=== PATIENT | male | born 1940 | race Caucasian/White ===

== ENCOUNTER 2016-03-15 20:26 | Inpatient (IN) | payer OTHER, MEDICARE ==
[~2016-03-15] VITALS: Ht 182.9 cm; Wt 100.0 kg
[~2016-03-15 20:26] MED LIST: ALDACTONE25 MG PO; AVODART0.5 MG PO; BAYER CHEWABLE81 MG PO; CHOLESTROL MED; K-DUR20 MEQ PO; LASIX40 MG; LASIX40 MG PO; PAMELOR10 MG PO; PLAVIX75 MG; PLAVIX75 MG PO; PRAVACHOL20 MG; PRAVACHOL40 MG PO; PROSCAR5 MG PO; TARKA 4-240 MG1 EACH PO; VITAMIN D31000 UNIT PO
[2016-03-15 21:01] LABS: BASOPHILS 0.1 % (0.0-2.0); EOSINOPHILS 1.5 % (0-7); HEMATOCRIT 38.6 % (42.0-54.0); IMMATURE GRANULOCYTES 0.2 % (0-5); LYMPHOCYTES 12.8 % (15-50); MCH 31.2 pg (26.0-34.0); MCHC 33.7 g/dL (31.0-37.0); MCV 92.6 fL (80.0-100.0); MEAN PLATELET VOLUME 9.4 fL (7.4-10.4); MONOCYTES 8.7 % (2-11); NEUTROPHILS 76.7 % (40-80); PLATELET COUNT 273 10x3/uL (130-400); RBC 4.17 10x6/uL (4.20-6.10); RDW 13.2 % (11.5-14.5)
[2016-03-15 21:58] LABS: ALBUMIN 3.5 g/dL (3.4-5.0); ALKALINE PHOSPHATASE 70 U/L (46-116); ALT (SGPT) 22 U/L (10-68); BILIRUBIN - TOTAL 0.51 mg/dL (0.2-1.3); CALC OSMOLALITY 280 mosm/kg (275-300); CALCIUM 8.7 mg/dL (8.5-10.1); CARBON DIOXIDE 20.8 mmol/L (21.0-32.0); CHLORIDE - SERUM 105 mmol/L (98-107); CREATININE - SERUM 1.2 mg/dL (0.6-1.3); GLUCOSE 117 mg/dL (74-106); POTASSIUM - SERUM 3.1 mmol/L (3.5-5.1); PROTEIN - SERUM 6.2 g/dL (6.4-8.2); SODIUM 139 mmol/L (136-145); UREA NITROGEN 19 mg/dL (7-18); eGFR NON AFRICAN AMERICAN 63 mL/min (90-120)
[2016-03-15 22:10] LABS: CREATINE KINASE 235 UL (21-232); PRO BNP 39 pg/mL (0-125)
[2016-03-15 22:13] LABS: TROPONIN-I < 0.017 ng/mL (0.000-0.060)
--- NOTE | 2016-03-16 00:38 | NUR ---
RECIEVED PT TO ROOM 2234 VIA WHEELCHAIR ACCOMPANIED BY FAMILY, ASSESSMENT COMPLETED NO ACUTE DISTRESS NOTED, ORIENTED TO ROOM AND CALL LIGHT, SAFETY MEASURES IN PLACE, CL IN REACH, WILL MONITOR
--- NOTE | 2016-03-16 03:45 | NUR ---
RESTING WITH EYES CLOSED, HOB ELEVATED, NC IN PLACE, SR'S UP, CL IN REACH
[2016-03-16] MEDS ORDERED: ASPIRIN EC81 M1 PO (05:53)
[2016-03-16] MEDS ORDERED: PYRIDOXINE HCL100 MG PO (05:53)
[2016-03-16] MEDS ORDERED: SAW PALMETTO450 MG PO (05:54)
[2016-03-16] MEDS ORDERED: MAGNESIUM OXID250 MG PO (05:54)
[2016-03-16 08:41] VITALS: BP 131/63
--- NOTE | 2016-03-16 09:00 | NUR ---
ASSESSMENT PER FLOW SHEET.PT WITHOUT DISTRESS.CALL LIGHT IN REACH
[2016-03-16 11:57] LABS: BASOPHILS 0 % (0.0-2.0); EOSINOPHILS 0 % (0-7); HEMATOCRIT 38.8 % (42.0-54.0); HEMOGLOBIN 13.1 g/dL (13.5-17.5); IMMATURE GRANULOCYTES 0.2 % (0-5); LYMPHOCYTES 4.6 % (15-50); MCH 31.2 pg (26.0-34.0); MCHC 33.8 g/dL (31.0-37.0); MCV 92.4 fL (80.0-100.0); MEAN PLATELET VOLUME 9.1 fL (7.4-10.4); MONOCYTES 1.5 % (2-11); NEUTROPHILS 93.7 % (40-80); PLATELET COUNT 258 10x3/uL (130-400); RDW 13.2 % (11.5-14.5); WBC 14.3 10x3/uL (4.8-10.8)
[2016-03-16 12:13] LABS: ALBUMIN 3.3 g/dL (3.4-5.0); ANION GAP 18.7 mmol/L (8-16); BILIRUBIN - TOTAL 0.56 mg/dL (0.2-1.3); CALCIUM 9.3 mg/dL (8.5-10.1); CARBON DIOXIDE 20.5 mmol/L (21.0-32.0); POTASSIUM - SERUM 3.2 mmol/L (3.5-5.1); PROTEIN - SERUM 6.8 g/dL (6.4-8.2)
[2016-03-16 12:18] LABS: CREATININE - SERUM 1.6 mg/dL (0.6-1.3)
[2016-03-16 12:31] VITALS: BP 148/76
[2016-03-16 13:39] LABS: MAGNESIUM - SERUM 1.9 mg/dL (1.8-2.4); PHOSPHOROUS 3.2 mg/dL (2.5-4.9)
--- NOTE | 2016-03-16 13:54 | NUR ---
Patient Name: SELENE MALAVE Admission Status: ER Accout number: [id number] Admission Date: 03-15-2016 : 1940 Admission Diagnosis: Attending: ARVIN Current LOS: 1 Anticipated DC Date: 03-19-2016 Planned Disposition: Home Primary Insurance: [facility] PPO Discharge Planning Comments: CM MET WITH PATIENT AND DAUGHTER (ANGELA) REGARDING D/C NEEDS AND PLANS. PATIENT STATED HE LIVES ALONE AND ONE OF HIS DAUGHTERS WILL DRIVE HIM HOME AT DISCHARGE. PATIENT STATES HE HAS NO STEPS TO ENTER HOME BUT INSIDE HE HAS SEVERAL 2 STEP STEP-UPS (HOUSE HIS DIFFERENT LEVELS). PATIENT IS INDEPENDENT WITH HIS CARE AND HAS NO DME AT HOME. PATIENT STATED DR. YUSUF IS HIS PCP AND PHARMACY IS [facility] ON [address] PATIENT DENIES THE NEED FOR HOME HEALTH. CM WILL CONTINUE TO FOLLOW PATIENT WITH D/C NEEDS AND PLANS. PCP DR. PARAMJIT KAYE ON [address] [phone] ANGELA (DAUGHTER) [phone] JOSELINE (DAUGHTER) [phone] Pigment Pusher: Fabby Perez Is the patient Alert and Oriented? Yes 0 * How many steps to enter\exit or inside your home? 4 0 * PCP DR. YUSUF 0 * [facility] [address] 0 * Preadmission Environment Home Alone 0 * ADLs Independent 0 * Equipment None 0 * List name and contact numbers for known caregivers / representatives who currently or will assist patient after discharge: ANGELA (DAUGHTER) [phone] JOSELINE (DAUGHTER) [phone] 0 * Community resources currently utilized None 0 * Additional services required to return to the preadmission environment? Yes 0 * Can the patient safely return to the preadmission environment? Yes 0 * Has this patient been hospitalized within the prior 30 days at any hospital? No 0 Grand Total: 0
[2016-03-16 16:27] VITALS: BP 170/62
--- NOTE | 2016-03-16 18:24 | NUR ---
REMAINS WITHOUT CHANGE.DENIES NEEDS.HEADACHE BETTER.WITHOUT CHANGE.CONT PLAN OF CARE.
[2016-03-16 18:37] VITALS: BP 131/63; Ht 182.9 cm; Wt 100.0 kg
--- NOTE | 2016-03-16 19:30 | NUR ---
ASSESSMENT COMPLETED, NO ACUTE DISTRESS NOTED, NC IN PLACE, DENIES NEEDS, SR'S UP, CL IN REACH, WILL MONITOR
[2016-03-16 21:14] VITALS: BP 147/69
--- NOTE | 2016-03-16 21:41 | NUR ---
meds given per mar, shy well, cl in reach
--- NOTE | 2016-03-16 23:55 | NUR ---
RESTING WITH EYES CLOSED, RESP WITH EASE, NC IN PLACE, CL IN REACH
--- NOTE | 2016-03-17 03:20 | NUR ---
CONTINUES TO REST WITH EYES CLOSED, NO DISTRESS NOTED, CL IN REACH
[2016-03-17 05:43] LABS: HEMATOCRIT 37.1 % (42.0-54.0); HEMOGLOBIN 12.2 g/dL (13.5-17.5); MCH 30.6 pg (26.0-34.0); MCHC 32.9 g/dL (31.0-37.0); MEAN PLATELET VOLUME 9.5 fL (7.4-10.4); PLATELET COUNT 288 10x3/uL (130-400); RBC 3.99 10x6/uL (4.20-6.10); RDW 13.2 % (11.5-14.5); WBC 21.4 10x3/uL (4.8-10.8)
[2016-03-17 05:52] LABS: ALBUMIN 2.9 g/dL (3.4-5.0); ANION GAP 15.5 mmol/L (8-16); BILIRUBIN - TOTAL 0.3 mg/dL (0.2-1.3); CALCIUM 8.9 mg/dL (8.5-10.1); CARBON DIOXIDE 21.8 mmol/L (21.0-32.0); CREATININE - SERUM 1.2 mg/dL (0.6-1.3); POTASSIUM - SERUM 3.3 mmol/L (3.5-5.1); PROTEIN - SERUM 5.4 g/dL (6.4-8.2)
--- NOTE | 2016-03-17 07:15 | NUR ---
SITTING UP IN BED AWAKE AND ALERT. DENIES PAIN OR NEEDS. CALL LIGHT IN REACH, SRX2 WITH BED IN LOWEST POSITION AND WHEELS LOCKED. WILL CONTINUE WITH PLAN OF CARE.
[2016-03-17 08:07] LABS: LYMPHOCYTES 2 % (15-50); NEUTROPHILS 97 % (40-80); PLATELET ESTIMATE NORMAL
[2016-03-17 08:29] VITALS: BP 130/62
--- NOTE | 2016-03-17 09:15 | NUR ---
SCHEDULED MEDICATIONS ADMINISTERED AT THIS TIME. ASSESSMENT PERFORMED PER FLOWSHEET. OXYGEN ON 2L VIA NC. PT DENIES PAIN AT THIS TIME. SCD MACHINE APPLIED TO BED AND SCD'S ON AND IN WORKING ORDER. DENIES FURTHER NEEDS. CALL LIGHT IN REACH, WILL CONTINUE WITH PLAN OF CARE.
[2016-03-17 12:13] VITALS: BP 110/57
--- NOTE | 2016-03-17 12:31 | NUR ---
UP IN SHOWER INDEPENDENTLY AT THIS TIME. DRESSING TO LOWER BACK REMOVED. WILL CONTINUE TO MONITOR PT.
--- NOTE | 2016-03-17 14:59 | NUR ---
SCHEDULED SOLU MEDROL ADMINISTERED PER ORDER AT THIS TIME. IV TO LEFT WRIST RE-DRESSED AND LABELED AT THIS TIME. DENIES NEEDS OR PAIN CURRENTLY. CALL LIGHT IN REACH, WILL CONTINUE WITH PLAN OF CARE.
[2016-03-17 16:24] VITALS: BP 129/62
--- NOTE | 2016-03-17 16:45 | NUR ---
DENIES NEEDS AT THIS TIME. CALL LIGHT IN REACH, WILL CONTINUE WITH PLAN OF CARE.
--- NOTE | 2016-03-17 19:00 | NUR ---
BEDSIDE REPORT RECEIVD AND CARE OF PT ASSUMED. PT LYING IN SEMI SIDHU'S POSITION VISITING WITH FAMILY MEMBER. IV IN LEFT WRIST SL. TELEMETRY IN PLACE AND READING SR AT THIS ASSESSMENT. WILL MONITOR GEN FOR NEEDS.
[2016-03-17 20:00] VITALS: BP 126/64
--- NOTE | 2016-03-17 20:46 | NUR ---
HS MEDS GIVEN. WILL CONTINUE TO MONITOR FOR NEEDS.
[2016-03-18 01:00] VITALS: BP 130/60
[2016-03-18 05:00] VITALS: BP 139/77
--- NOTE | 2016-03-18 05:00 | NUR ---
ALL NEEDS MET DURING SHIFT. CONTINUE PLAN OF CARE.
[2016-03-18 05:35] LABS: BASOPHILS 0 % (0.0-2.0); EOSINOPHILS 0 % (0-7); HEMATOCRIT 41.4 % (42.0-54.0); HEMOGLOBIN 13.1 g/dL (13.5-17.5); IMMATURE GRANULOCYTES 0.4 % (0-5); LYMPHOCYTES 3.2 % (15-50); MCH 30.3 pg (26.0-34.0); MCHC 31.6 g/dL (31.0-37.0); MCV 95.6 fL (80.0-100.0); MEAN PLATELET VOLUME 9.6 fL (7.4-10.4); MONOCYTES 2.2 % (2-11); NEUTROPHILS 94.2 % (40-80); PLATELET COUNT 343 10x3/uL (130-400); RBC 4.33 10x6/uL (4.20-6.10); RDW 13.5 % (11.5-14.5); WBC 24.3 10x3/uL (4.8-10.8)
[2016-03-18 06:11] LABS: ALBUMIN 3.1 g/dL (3.4-5.0); ANION GAP 16.5 mmol/L (8-16); BILIRUBIN - TOTAL 0.37 mg/dL (0.2-1.3); CALCIUM 8.9 mg/dL (8.5-10.1); CARBON DIOXIDE 23.8 mmol/L (21.0-32.0); POTASSIUM - SERUM 3.3 mmol/L (3.5-5.1); PROTEIN - SERUM 6.6 g/dL (6.4-8.2)
[2016-03-18 06:12] LABS: CREATININE - SERUM 1.6 mg/dL (0.6-1.3); PHOSPHOROUS 4.1 mg/dL (2.5-4.9)
--- NOTE | 2016-03-18 08:00 | NUR ---
PT ASSESSMENT COMPLETE AWAKE AND ALERT ORIENTED X 3 LUNGS WITH COARSE SOUNDS THROUGHOUT SHORT OF BREATH WITH EXERTION OF ANY KIND. NOTED VENTRAL HERNIA WITH COUGH COMPLAINS OF PAIN AND INABLITY TO PROPERLY SPLINT NEW ORDER FOR ABDOMINAL BINDER GIVEN FOR ASSISTANCE WITH SPLINT. DRESSING CHANGED TO LAMANECTOMY SITE. WOUND EDGES WELL APPROXIMATEED.
[2016-03-18 08:11] VITALS: BP 112/62
--- NOTE | 2016-03-18 10:52 | NUR ---
NO ACUTE DISTRESS NOTED VOICES ALL NEEDS TO STAFF CALL LIGHT IN REACH SIDE RAILS UP X 2
[2016-03-18 11:40] VITALS: BP 117/64
--- NOTE | 2016-03-18 13:57 | NUR ---
NUTRITION MONITORING & EVAL CHART REVIEWED. PT TOLERATING REG DIET. 25 TO 100% INTAKE RECENT MEALS. CONTINUES TO BE ASSESSED AT LOW NUTRITIONAL RISK. RD FOLLOWING
[2016-03-18 16:13] VITALS: BP 125/63
--- NOTE | 2016-03-18 16:45 | NUR ---
PATIENT IN BED WITH NO COMPLAINTS AT THIS TIME. CHROME TANNER AT BEDSIDE. CALL LIGHT WITHIN REACH.
--- NOTE | 2016-03-18 17:38 | NUR ---
PT AWAKE AND ALERT ORIENTED X 3 LUNGS CLEAR BILATERAL DENEIS PAIN OR DISCOMFORT. CALL LIGHT IN REACH SIDE RAILS UP X 2
--- NOTE | 2016-03-18 20:00 | NUR ---
ASSESSMENT PER FLOWSHEET. IV PATENT LEFT QWRIST WITH NS AT KVO. TELM SHOWS SR WITH HR 79. O2 ON 2L/M PER NC. EXSPIRATORY WHEEZES NOTED ABDOMINAL BINDER IN PLACE HX OF VENTRAL HERNIA. SCD'S ON. SR UP X2 CALL LIGHT WITHIN REACH.
[2016-03-18 21:00] VITALS: BP 140/70
--- NOTE | 2016-03-18 21:00 | NUR ---
MEDS GIVEN PER MAR.
--- NOTE | 2016-03-19 | NUR ---
EYES CLOSED RESPIRATIONS WITH EASE AND UNLABORED.
[2016-03-19 00:30] VITALS: BP 120/62
--- NOTE | 2016-03-19 03:00 | NUR ---
RESTING QUIETLY DENIES NEEDS. VOIDS WELL.
[2016-03-19 05:00] VITALS: BP 133/66
--- NOTE | 2016-03-19 05:11 | NUR ---
EYES CLOSED RESPIRATIONS WITH EASE AND UNLABORED.
[2016-03-19 05:17] LABS: BASOPHILS 0.1 % (0.0-2.0); EOSINOPHILS 0 % (0-7); HEMATOCRIT 37.6 % (42.0-54.0); HEMOGLOBIN 12.6 g/dL (13.5-17.5); IMMATURE GRANULOCYTES 0.4 % (0-5); LYMPHOCYTES 4.5 % (15-50); MCH 31.4 pg (26.0-34.0); MCHC 33.5 g/dL (31.0-37.0); MCV 93.8 fL (80.0-100.0); MEAN PLATELET VOLUME 9.6 fL (7.4-10.4); MONOCYTES 2.5 % (2-11); NEUTROPHILS 92.5 % (40-80); PLATELET COUNT 308 10x3/uL (130-400); RBC 4.01 10x6/uL (4.20-6.10); RDW 13.2 % (11.5-14.5)
[2016-03-19 05:18] LABS: WBC 15.9 10x3/uL (4.8-10.8)
[2016-03-19 05:46] LABS: ALBUMIN 2.8 g/dL (3.4-5.0); ANION GAP 15.1 mmol/L (8-16); BILIRUBIN - TOTAL 0.31 mg/dL (0.2-1.3); CALCIUM 8.5 mg/dL (8.5-10.1); CARBON DIOXIDE 23.5 mmol/L (21.0-32.0); CREATININE - SERUM 1.4 mg/dL (0.6-1.3); MAGNESIUM - SERUM 2.1 mg/dL (1.8-2.4); POTASSIUM - SERUM 3.6 mmol/L (3.5-5.1); PROTEIN - SERUM 5.4 g/dL (6.4-8.2)
--- NOTE | 2016-03-19 07:42 | NUR ---
AM ROUNDING- PT SITTING UP IN BED CURRENTLY RECEIVING A BREATHING TREATMENT. PT IS ALERT AND ORIENTED. ON EP, AM LABS WITHIN NORMAL LIMITS. IV SEEN TO LEFT WRIST THAT IS SALINE LOCKED AND PATENT. SCDS ARE AT BEDSIDE BUT CURRENTLY OFF. PT IS ON 02 AT 2L VIA NC. PT HAS ABDOMINAL BINDER ON FOR A HERNIA. CLEAN, DRY, AND INTACT DRESSING SEEN TO LOWER MIDDLE BACK WHERE PER REPORT, PT HAD A PROCEDURE DONE A COUPLE WEEKS AGO. NO NEED AT CURRENT TIME. WILL CONTINUE TO MONITOR.
[2016-03-19 08:11] VITALS: BP 120/67
[2016-03-19 12:02] VITALS: BP 132/61
--- NOTE | 2016-03-19 12:35 | NUR ---
ABD PAD REMOVED FROM PTS LOWER BACK AREA PER PT REQUEST SO PT COULD TAKE A SHOWER. INSICION SCAR SEEN WHERE PT HAD A PROCEDURE A COUPLE WEEKS AGO (PER PT). WILL PLACE ABD PAD BACK ON INSICION SITE WHEN PT GETS OUT OF SHOWER.
--- NOTE | 2016-03-19 13:43 | NUR ---
ON MONITOR SHOWING SR, HR 78.
[2016-03-19 16:14] VITALS: BP 135/64
--- NOTE | 2016-03-19 18:21 | NUR ---
PT SITTING UP IN BED WITH EYES OPEN RESTING. NO NEED AT CURRENT TIME. WILL CONTINUE TO MONITOR.
[2016-03-19 19:00] VITALS: BP 144/72
--- NOTE | 2016-03-20 03:55 | NUR ---
PT LAYING IN BED NO DISTRESS OBSERVED AT THIS TIME PT IVP TO LEFT WRIST SALINE LOCKED NO INFILTRATION OBSERVED BED LOW AND LOCKED CALL LIGHT IN REACH SRX2 WILL MONITOR
[2016-03-20 04:00] VITALS: BP 133/67
--- NOTE | 2016-03-20 04:02 | NUR ---
COPD LITATURE PROVIDED TO PT FOR TEACHING
[2016-03-20 06:08] LABS: BASOPHILS 0.1 % (0.0-2.0); EOSINOPHILS 0 % (0-7); HEMATOCRIT 39.6 % (42.0-54.0); IMMATURE GRANULOCYTES 0.8 % (0-5); MCH 30.6 pg (26.0-34.0); MCHC 32.8 g/dL (31.0-37.0); MCV 93.2 fL (80.0-100.0); MEAN PLATELET VOLUME 9.6 fL (7.4-10.4); MONOCYTES 3.4 % (2-11); NEUTROPHILS 90.7 % (40-80); PLATELET COUNT 332 10x3/uL (130-400); RBC 4.25 10x6/uL (4.20-6.10); RDW 13.4 % (11.5-14.5); WBC 14.9 10x3/uL (4.8-10.8)
[2016-03-20 06:37] LABS: ALBUMIN 2.7 g/dL (3.4-5.0); ANION GAP 14.2 mmol/L (8-16); BILIRUBIN - TOTAL 0.4 mg/dL (0.2-1.3); CALCIUM 8.4 mg/dL (8.5-10.1); CARBON DIOXIDE 22.7 mmol/L (21.0-32.0); CREATININE - SERUM 1.4 mg/dL (0.6-1.3); POTASSIUM - SERUM 3.9 mmol/L (3.5-5.1); PROTEIN - SERUM 5.7 g/dL (6.4-8.2)
--- NOTE | 2016-03-20 08:08 | NUR ---
AWAKE AND ALERT. ORIENTED X3. NO C/O AT THIS TIME. LUNGS ARE CLEAR BUT DIMINISHED THROUGHOUT, NON PRODUCTIVE COUGH NOTED. SKIN IS INTACT WITHOUT REDNESS. SL TO LEFT FOREARM IS PATENT WITHOUT REDNESS AT INSERTION SITE. SCD'S IN PLACE. DENIES NEEEDS. BREAKFAST SERVED IN ROOM.
[2016-03-20 08:55] VITALS: BP 137/71
--- NOTE | 2016-03-20 10:00 | NUR ---
ATE ALL OF BREAKFAST. NO C/O AT THIS TIME. UP WITH PT.
--- NOTE | 2016-03-20 12:45 | NUR ---
ATE MOST OF LUNCH. VISITOR AT BEDSIDE.
[2016-03-20 13:04] VITALS: BP 140/73
[2016-03-20 15:17] LABS: CHOL - HDL RATIO 2.5 ratio (2.3-4.9); LDL-HDL RATIO 1.3 ratio (1.5-3.5)
[2016-03-20 16:03] VITALS: BP 143/73
--- NOTE | 2016-03-20 18:11 | NUR ---
ATE ALL OF SUPPER. CONTINUES TO REPORT FEELING MUCH BETTER. NO CHANGES NOTED. DENIES NEEDS.
[2016-03-20 20:38] VITALS: BP 139/68
--- NOTE | 2016-03-20 23:30 | NUR ---
PT ASSESSMENT COMPLETED PT LAYING IN BED FAN ON AND PT STATES " I FEEL ALOT BETTER I FEEL LIKE I CAN BREATH AND I GOT UP TODAY AND WALKED AROUND A LITTLE BIT" NO DISTRESS OBSERVED AT THIS TIME PT RESPERATIONS EVEN AND UNLABORED ON 2LNC AND SPO2 92% CALL LIGHT IN REACH SRX2 BED LOW AND LOCKED WILL MONITOR
[2016-03-21] VITALS: BP 150/77
[2016-03-21 04:00] VITALS: BP 131/69
--- NOTE | 2016-03-21 04:16 | NUR ---
PT LAYING IN BED BREATHING TX COMPLETED AND PT TOLERATED WELL NO DISTRESS OBSERVED RESPERATIONS EVEN AND UNLABORED CALL LIGHT IN REACH SRX2 BED LOW AND LOCKED WILL MONITOR
[2016-03-21 05:07] LABS: BASOPHILS 0.1 % (0.0-2.0); EOSINOPHILS 0 % (0-7); HEMATOCRIT 38.7 % (42.0-54.0); HEMOGLOBIN 13.2 g/dL (13.5-17.5); IMMATURE GRANULOCYTES 2.1 % (0-5); LYMPHOCYTES 5.2 % (15-50); MCH 31.5 pg (26.0-34.0); MCHC 34.1 g/dL (31.0-37.0); MCV 92.4 fL (80.0-100.0); MEAN PLATELET VOLUME 9.6 fL (7.4-10.4); MONOCYTES 4.4 % (2-11); NEUTROPHILS 88.2 % (40-80); PLATELET COUNT 303 10x3/uL (130-400); RBC 4.19 10x6/uL (4.20-6.10); RDW 13.3 % (11.5-14.5); WBC 12.6 10x3/uL (4.8-10.8)
[2016-03-21 05:29] LABS: ALBUMIN 2.5 g/dL (3.4-5.0); ANION GAP 13.4 mmol/L (8-16); BILIRUBIN - TOTAL 0.4 mg/dL (0.2-1.3); CALCIUM 8.3 mg/dL (8.5-10.1); CARBON DIOXIDE 23.4 mmol/L (21.0-32.0); CREATININE - SERUM 1.3 mg/dL (0.6-1.3); MAGNESIUM - SERUM 2.5 mg/dL (1.8-2.4); PHOSPHOROUS 3.5 mg/dL (2.5-4.9); POTASSIUM - SERUM 3.8 mmol/L (3.5-5.1); PROTEIN - SERUM 5.7 g/dL (6.4-8.2)
--- NOTE | 2016-03-21 07:20 | NUR ---
SITTING UP IN BED AT THIS TIME. ALERT AND ORIENTED X4. DENIES NEEDS AT THIS TIME. CALL LIGHT IN REACH, SRX2 WITH BED IN LOWEST POSITION AND WHEELS LOCKED. SCD'S ON AT THIS TIME. WILL CONTINUE WITH PLAN OF CARE.
--- NOTE | 2016-03-21 08:10 | NUR ---
ASSESSMENT PERFORMED PER FLOWSHEET. RHONCHI ASCULTATED IN TRAVIS, RUL AND RML. LOWER LOBES CLEAR BILATERALLY. OXYGEN ON 2L VIA NC. RESPIRATIONS EVEN AND LABORED UPON EXERTION. PROVIDED PT WITH FLUTTER VALVE AND INSTRUCTED HIM ON PROPER USE. PT DEMONSTRATED USE AND VERBALIZED UNDERSTANDING OF DIRECTIONS. DENIES PAIN. HAS GENERALIZED SWELLING TO BILATERAL UPPER AND LOWER EXTREMETIES. SCD'S ON AND IN WORKING ORDER. AMBULATES AND SELF POSITIONS IN BED INDEPENDENTLY. SRX2 WITH BED IN LOWEST POSITION AND WHEELS LOCKED. CALL LIGHT IN REACH, PROVIDED PT WITH COFFEE. DENIES FURTHER NEEDS. WILL CONTINUE WITH PLAN OF CARE.
[2016-03-21 09:00] VITALS: BP 151/79
--- NOTE | 2016-03-21 11:08 | NUR ---
SCHEDULED FLORAJEN ADMINISTERED AT THIS TIME. PT DENIES PAIN OR NEEDS AT CURRENT TIME. CALL LIGHT IN REACH, WILL CONTINUE WITH PLAN OF CARE.
[2016-03-21 12:45] VITALS: BP 151/69
[2016-03-21 16:28] VITALS: BP 129/69
[2016-03-21 19:00] VITALS: BP 122/74
--- NOTE | 2016-03-21 22:49 | NUR ---
PT LAYING IN BED ABD PAD APPLIED TO MIDLINE BACK FROM INSICION OLDER THEN 1 MOUNTH FOR COMFORT ABD BINDER BACK IN PLACE PT AMBULATORY WITH NO ASSISTANCE NEEDED AND CALL LIGHT IN REACH SRX2 BED LOW AND LOCKED WILL MONITOR
[2016-03-22] VITALS: BP 139/76
[2016-03-22 04:00] VITALS: BP 125/73
[2016-03-22 05:38] LABS: BASOPHILS 0.1 % (0.0-2.0); EOSINOPHILS 0 % (0-7); HEMATOCRIT 40.9 % (42.0-54.0); HEMOGLOBIN 13.4 g/dL (13.5-17.5); IMMATURE GRANULOCYTES 4.4 % (0-5); LYMPHOCYTES 4.8 % (15-50); MCH 30.3 pg (26.0-34.0); MCHC 32.8 g/dL (31.0-37.0); MCV 92.5 fL (80.0-100.0); MEAN PLATELET VOLUME 9.4 fL (7.4-10.4); MONOCYTES 4.4 % (2-11); NEUTROPHILS 86.3 % (40-80); PLATELET COUNT 315 10x3/uL (130-400); RBC 4.42 10x6/uL (4.20-6.10); RDW 13.3 % (11.5-14.5); WBC 13.5 10x3/uL (4.8-10.8)
--- NOTE | 2016-03-22 05:41 | NUR ---
PT LAYING IN BED NO DISTRESS OBSERVED CALL LIGHT IN REACH SRX2 BED LOW AND LOCKED WILL MONITOR
[2016-03-22 05:55] LABS: ANION GAP 14.5 mmol/L (8-16); CALCIUM 8.4 mg/dL (8.5-10.1); CARBON DIOXIDE 22.6 mmol/L (21.0-32.0); CREATININE - SERUM 1.3 mg/dL (0.6-1.3); POTASSIUM - SERUM 4.1 mmol/L (3.5-5.1)
--- NOTE | 2016-03-22 07:45 | NUR ---
PT SITTING UP IN BED. ASSESSMENT COMPLETED. PT STATES "I WOULD LIKE TO SPEAK TO THE ROUNDING DR ABOUT WHY I AM NOT IMPROVING. AND THERE IS A TIGHTNESS IN MY LEFT THIGH WHEN I WALK." PT DENIES OTHER NEEDS. BED LOW. PHONE AND CALL LIGHT IN REACH. SIDE RAILS UP X2.
[2016-03-22 08:59] VITALS: BP 134/73
--- NOTE | 2016-03-22 10:04 | NUR ---
AM MEDS GIVEN. PT DENIES NEEDS AT THIS TIME. BED LOW. PHONE AND CALL LIGHT IN REACH. SIDE RAILS UP X2.
--- NOTE | 2016-03-22 11:38 | NUR ---
ADMINISTERED FLORAJEN PO. PT DENIES NEEDS AT THIS TIME.
[2016-03-22 12:32] VITALS: BP 153/74
--- NOTE | 2016-03-22 13:48 | NUR ---
ADMINISTERED LASIX PO AND MIRALAX PACKET MIXED WITH WATER. PT DENIES NEEDS AT THIS TIME. BED LOW. PHONE AND CALL LIGHT IN REACH. SIDE RAILS UP X2.
--- NOTE | 2016-03-22 15:02 | NUR ---
LEFT WRIST SALINE LOCK INFILTRATED, REMOVED S/L AND RESITED TO RIGHT HAND PER MARY KAY GARCIA. FLUSHED WITH SALINE, PATENT. ADMINISTERED SOLU-MEDROL IVP. PT DENIES OTHER NEEDS AT THIS TIME. BED LOW. PHONE AND CALL LIGHT IN REACH. SIDE RAILS UP X2.
--- NOTE | 2016-03-22 15:19 | NUR ---
ADMINISTERED TESSALON PO PER ORDERS, PT DENIES NEEDS AT THIS TIME. BED LOW. PHONE AND CALL LIGHT IN REACH. SIDE RAILS UP X2.
[2016-03-22 16:08] VITALS: BP 145/76
--- NOTE | 2016-03-22 17:30 | NUR ---
PT SOB AFTER WALKING TO RESTROOM AND BACK. BREATHING CALMED DOWN AFTER A FEW MINUTES BACK IN BED. PT EATING DINNER. DENIES NEEDS.
--- NOTE | 2016-03-22 18:00 | NUR ---
PT SITTING UP IN BED WATCHING TV. STATES "I FEEL BETTER AND AM BREATHING BETTER". DENIES NEEDS AT THIS TIME. BED LOW. PHONE AND CALL LIGHT IN REACH. SIDE RAILS UP X2.
[2016-03-22 19:00] VITALS: BP 135/72
--- NOTE | 2016-03-22 19:15 | NUR ---
RECIEVED SHIFT REPORT. PT IS LYING IN BED. ALERT AND ORIENTED AND ABLE TO VERBALIZE NEEDS. IV IS PATENT AND SALINE LOC AT THIS TIME. O2 @ 3.5 PER NASAL CANNULA. SCD'S ON. PT IS AMBULATORY BUT WAS INSTRUCTED TO CALL FOR ANY ASSISTANCE NEEDED. PT DENIES ANY PAIN AT THIS TIME. NO NEEDS ARE VERBALIZED AT THIS TIME. WILL CONTINUE TO MONITOR. SIDE RAILS ARE UP X 2. BED IS IN LOWEST POSITION. CALL LIGHT IS WITHIN REACH.
--- NOTE | 2016-03-22 21:37 | NUR ---
SHIFT ASSESSMENT COMPLETED. NIGHT MEDS GIVEN WITH NO PROBLEMS. NO NEEDS ARE VOICED. WILL MONITOR. SIDE RAILS X 2. BED LOW. CALL LIGHT IN REACH.
[2016-03-23 04:00] VITALS: BP 157/84
[2016-03-23 04:57] LABS: BASOPHILS 0.1 % (0.0-2.0); EOSINOPHILS 0 % (0-7); HEMOGLOBIN 13.1 g/dL (13.5-17.5); IMMATURE GRANULOCYTES 5.7 % (0-5); LYMPHOCYTES 3.5 % (15-50); MCH 30.3 pg (26.0-34.0); MCHC 32.8 g/dL (31.0-37.0); MCV 92.6 fL (80.0-100.0); MEAN PLATELET VOLUME 9.4 fL (7.4-10.4); NEUTROPHILS 85.7 % (40-80); PLATELET COUNT 278 10x3/uL (130-400); RBC 4.32 10x6/uL (4.20-6.10); RDW 13.3 % (11.5-14.5); WBC 11.8 10x3/uL (4.8-10.8)
[2016-03-23 05:16] LABS: ALBUMIN 2.5 g/dL (3.4-5.0); ANION GAP 10.5 mmol/L (8-16); BILIRUBIN - TOTAL 0.6 mg/dL (0.2-1.3); CALCIUM 8.2 mg/dL (8.5-10.1); CARBON DIOXIDE 25.8 mmol/L (21.0-32.0); CREATININE - SERUM 1.3 mg/dL (0.6-1.3); POTASSIUM - SERUM 4.3 mmol/L (3.5-5.1); PROTEIN - SERUM 5.4 g/dL (6.4-8.2)
--- NOTE | 2016-03-23 07:15 | NUR ---
REPORT RECEIVED FROM AGRICULTURAL COMMODITIES INSPECTOR NURSE. CALL LIGHT IN REACH.
--- NOTE | 2016-03-23 08:14 | NUR ---
ASSESSMENT COMPLETED. AM MEDS ADMINISTERED. SCDs TO BLE. CALL LIGHT IN REACH. WILL CONTINUE WITH PLAN OF CARE.
[2016-03-23 08:15] VITALS: BP 144/74
--- NOTE | 2016-03-23 10:53 | NUR ---
LYING IN BED WITH EYES CLOSED. RESP EVEN AND UNLABORED. CALL LIGHT IN REACH.
--- NOTE | 2016-03-23 11:25 | NUR ---
KELLIE LOBO. FAMILY IN ROOM. CALL LIGHT IN REACH.
[2016-03-23 12:30] VITALS: BP 154/73
--- NOTE | 2016-03-23 12:34 | NUR ---
NO NEEDS VOICED AT THIS TIME. CALL LIGHT IN REACH.
[2016-03-23] MEDS ORDERED: BENZONATATE200 MG PO (13:52)
[2016-03-23] MEDS ORDERED: PULMICORT0.5 MG/21 INH (13:52)
[2016-03-23] MEDS ORDERED: LASIX20 MG PO (13:52)
[2016-03-23] MEDS ORDERED: SINGULAIR10 MG PO (13:52)
[2016-03-23] MEDS ORDERED: FLUTICASONE PRO16 GM NASAL (13:53)
[2016-03-23] MEDS ORDERED: ALBUTEROL2.5 MG/3 M UPD (13:54)
[2016-03-23] MEDS ORDERED: BROVANA15 MCG/2 M INH (13:54)
[2016-03-23] MEDS ORDERED: IPRAT-ALBUT 0.5-3 ML INH (13:54)
[2016-03-23] MEDS ORDERED: TUSSIONEX PENN473 ML PO (13:56)
[2016-03-23] MEDS ORDERED: PREDNISONE10 MG PO (13:56)
--- NOTE | 2016-03-23 14:02 | NUR ---
AMBULATED IN HALLWAY WITH FAMILY. TOLERATED WELL.
--- NOTE | 2016-03-23 14:29 | NUR ---
KEY GRIGSBY PO. IV TO RIGHT HAND DC'D WITH TIP INTACT.
--- NOTE | 2016-03-23 14:58 | NUR ---
PATIENT SITTING UP IN BED WITH EYES OPEN. DENIES NEEDS AT THIS TIME. NO COMPLAINTS. CALL LIGHT WITHIN REACH.
--- NOTE | 2016-03-23 15:17 | NUR ---
CM REASSESSMENT NOTE: PATIENT IS DISCHARGING HOME. PATIENT STATED HE HAS A NEBULIZER ALREADY. PATIENTS DAUGHTER (ANGELA) IS DRIVING PATIENT HOME. PATIENT REFUSED HOME HEALTH AND ANY OTHER NEEDS.
--- NOTE | 2016-03-23 15:32 | NUR ---
LAYING QUIETLY WITH EYES CLOSED AT PRESENT RESP EVEN AND UNLABORED AT PRESENT.
--- NOTE | 2016-03-23 15:51 | NUR ---
DC INSTRUCTIONS GIVEN TO PATIENT AND RX FOR TUSSIONEX GIVEN ALSO. NASAL SPRAY AND TARKA GIVEN TO PATIENT. WAITING ON RIDE HOME.
--- NOTE | 2016-03-23 17:02 | NUR ---
DAUGHTER HER TO COMPACTOR DRIVER PATIENT. MEDICATIONS GONE OVER WITH DAUGHTER. STAFF TOOK PATIENT OUT TO CAR
== END 2016-03-23 17:10 | disposition home or self-care (01) | DRG 194 ==
LOC: D.ER 20:26 → D.MS 22:43
PROVIDERS: Emergency Medicine; Internal Medicine Nephrology; Internal Medicine Pulmonary Disease; ADMIT Family Medicine
DX: J18.9 Pneumonia, unspecified organism (principal); N17.9 Acute kidney failure, unspecified; J98.11 Atelectasis; J20.9 Acute bronchitis, unspecified; G47.33 Obstructive sleep apnea (adult) (pediatric); I25.10 Atherosclerotic heart disease of native coronary artery without angina pectoris; J45.909 Unspecified asthma, uncomplicated; G62.9 Polyneuropathy, unspecified; I12.9 Hypertensive chronic kidney disease with stage 1 through stage 4 chronic kidney disease, or unspecified chronic kidney disease; N18.2 Chronic kidney disease, stage 2 (mild); D35.00 Benign neoplasm of unspecified adrenal gland; J98.09 Other diseases of bronchus, not elsewhere classified; Z95.5 Presence of coronary angioplasty implant and graft; R55 Syncope and collapse; E87.6 Hypokalemia

== ENCOUNTER → 2016-06-17 12:23 | Outpatient (CLI) | payer OTHER ==
[2016-03-16 18:37] VITALS: BMI 29.9
[~2016-06-17 12:23] MED LIST changes: +ALBUTEROL2.5 MG/3 M UPD; +ASPIRIN EC81 M1 PO; +BENZONATATE200 MG PO; +BROVANA15 MCG/2 M INH; +FLUTICASONE PRO16 GM NASAL; +IPRAT-ALBUT 0.5-3 ML INH; +LASIX20 MG PO; +MAGNESIUM OXID250 MG PO; +PREDNISONE10 MG PO; +PULMICORT0.5 MG/21 INH; +PYRIDOXINE HCL100 MG PO; +SAW PALMETTO450 MG PO; +SINGULAIR10 MG PO; +TUSSIONEX PENN473 ML PO
[2016-06-17 12:54] LABS: BASOPHILS 0.3 % (0-2); EOSINOPHILS 2.4 % (0-7); HEMOGLOBIN 15.1 g/dL (13.5-17.5); IMMATURE GRANULOCYTES 0.1 % (0-5); LYMPHOCYTES 36.6 % (15-50); MCH 30.1 pg (26.0-34.0); MCHC 33.6 g/dL (31.0-37.0); MCV 89.6 fL (80.0-100.0); MEAN PLATELET VOLUME 9.6 fL (7.4-10.4); MONOCYTES 6.7 % (2-11); NEUTROPHILS 53.9 % (40-80); PLATELET COUNT 285 10x3/uL (130-400); RBC 5.02 10x6/uL (4.20-6.10); RDW 13.5 % (11.5-14.5); WBC 8.6 10x3/uL (4.8-10.8)
[2016-06-17 13:18] LABS: ALBUMIN 3.9 g/dL (3.4-5.0); ANION GAP 8.9 mmol/L (8-16); BILIRUBIN - TOTAL 0.8 mg/dL (0.2-1.3); CALCIUM 9.1 mg/dL (8.5-10.1); CARBON DIOXIDE 30.6 mmol/L (21.0-32.0); CHOL - HDL RATIO 3.6 ratio (2.3-4.9); CREATININE - SERUM 1.2 mg/dL (0.6-1.3); LDL-HDL RATIO 2.1 ratio (1.5-3.5); POTASSIUM - SERUM 3.5 mmol/L (3.5-5.1); PROTEIN - SERUM 7.2 g/dL (6.4-8.2); THYROID STIMULATING HORMONE 3.16 uIU/mL (0.36-3.74)
[2016-06-17 13:19] LABS: APPEARANCE CLEAR (CLEAR); COLOR YELLOW (YELLOW); SPECIFIC GRAVITY 1.015 (1.005-1.020)
[2016-06-17 13:21] LABS: BILIRUBIN NEGATIVE (NEGATIVE); GLUCOSE NEGATIVE (NEGATIVE); KETONE NEGATIVE (NEGATIVE); LEUKOCYTE ESTERASE NEGATIVE (NEGATIVE); NITRITE NEGATIVE (NEGATIVE); PROTEIN NEGATIVE (NEGATIVE); UROBILINOGEN NORMAL (NORMAL)
== END | disposition home or self-care (01) ==
LOC: D.LAB 12:23
PROVIDERS: Family Medicine
DX: E87.5 Hyperkalemia (principal); E78.5 Hyperlipidemia, unspecified; E55.9 Vitamin D deficiency, unspecified

== ENCOUNTER 2018-04-29 09:01 | Inpatient (IN) | payer BC, MEDICARE ==
[~2018-04-29] VITALS: Ht 182.9 cm; Wt 102.1 kg
[2018-04-29] MEDS ORDERED: K-DUR20 MEQ PO (09:16)
[2018-04-29 09:41] LABS: BASOPHILS 0.1 % (0-2); EOSINOPHILS 1.1 % (0-7); HEMATOCRIT 43.5 % (42.0-54.0); HEMOGLOBIN 14.9 g/dL (13.5-17.5); IMMATURE GRANULOCYTES 0.3 % (0-5); LYMPHOCYTES 16.8 % (15-50); MCH 30.7 pg (26.0-34.0); MCHC 34.3 g/dL (31.0-37.0); MCV 89.5 fL (80.0-100.0); MEAN PLATELET VOLUME 9.5 fL (7.4-10.4); MONOCYTES 9.1 % (2-11); NEUTROPHILS 72.6 % (40-80); PLATELET COUNT 273 10x3/uL (130-400); RBC 4.86 10x6/uL (4.20-6.10); RDW 13.5 % (11.5-14.5); WBC 15.9 10x3/uL (4.8-10.8)
--- NOTE | 2018-04-29 09:42 | NUR ---
PT IN WITH C/O SOB, WHEEZING AND COUGH, SOB WORSENS UPON EXERTION, FAMILY AT BEDSIDE. UPDRAFT ORDERED AND GIVEN, RT AT BEDSIDE.
[2018-04-29 09:53] LABS: ALBUMIN 3.7 g/dL (3.4-5.0); ALKALINE PHOSPHATASE 71 U/L (46-116); ALT (SGPT) 26 U/L (10-68); BILIRUBIN - TOTAL 0.65 mg/dL (0.2-1.3); CALC OSMOLALITY 278 mosm/kg (275-300); CARBON DIOXIDE 23.2 mmol/L (21.0-32.0); CHLORIDE - SERUM 103 mmol/L (98-107); CREATININE - SERUM 1.4 mg/dL (0.6-1.3); GLUCOSE 85 mg/dL (74-106); POTASSIUM - SERUM 3.6 mmol/L (3.5-5.1); PROTEIN - SERUM 7.1 g/dL (6.4-8.2); SODIUM 138 mmol/L (136-145); UREA NITROGEN 25 mg/dL (7-18); eGFR NON AFRICAN AMERICAN 52 mL/min (90-120)
[2018-04-29 10:01] LABS: APTT 25.4 SECONDS (22.8-39.4); INR 1.04 (0.85-1.17); PROTIME 13.1 SECONDS (11.6-15.0)
[2018-04-29 10:05] LABS: CREATINE KINASE 225 UL (21-232); PRO BNP 118 pg/mL (0-450); TROPONIN-I < 0.017 ng/mL (0.000-0.060)
[2018-04-29 14:30] VITALS: BP 129/59
--- NOTE | 2018-04-29 15:00 | NUR ---
I have reviewed this patient and I concur with the Shift Assessment completed by the Licensed Practical Nurse today this shift.
[2018-04-29 15:32] VITALS: BP 129/59; BMI 30.6
[2018-04-29 16:00] VITALS: BP 144/61
--- NOTE | 2018-04-29 19:05 | NUR ---
SITTING UP RIGHT IN BED, EVEN UNLABORED BREATHING, ON ROOM AIR, IV TO RIGHT AC, PATENT AND SALINE LOCKED, DENIES ANY CURRENT NEEDS OR DISCOMFORTS, BED LOWERED AND LOCKED, CALL LIGHT WITHIN REACH. CPOC
--- NOTE | 2018-04-29 19:45 | NUR ---
PT SITTING UP IN BED, NO SIGNS OF DISTRESS. ALERT AND ORIENTED, FAMILY AT BEDSIDE. IV RIGHT AC SL, FLUSHES EASILY. BREATHING EVEN, UNLABORED. SOB W/ EXERTION. OCCASIONAL NONPRODUCTIVE COUGH. DENIES NEEDS AT THIS TIME. CL IN REACH, WILL CONTINUE TO MONITOR
[2018-04-29 20:00] VITALS: BP 132/72; BP 142/64
--- NOTE | 2018-04-29 21:30 | NUR ---
BS 181, REFUSED COVERAGE. WILL CONT TO MONITOR
[2018-04-30] VITALS: BP 146/71
[2018-04-30 04:00] VITALS: BP 133/74
[2018-04-30 05:52] LABS: ANION GAP 14.5 mmol/L (8-16); CALCIUM 8.8 mg/dL (8.5-10.1); CARBON DIOXIDE 22.3 mmol/L (21.0-32.0); CREATININE - SERUM 1.4 mg/dL (0.6-1.3)
[2018-04-30 05:52] LABS: BASOPHILS 0 % (0-2); EOSINOPHILS 0 % (0-7); HEMATOCRIT 43.7 % (42.0-54.0); HEMOGLOBIN 14.5 g/dL (13.5-17.5); IMMATURE GRANULOCYTES 0.2 % (0-5); LYMPHOCYTES 5.6 % (15-50); MCH 30.1 pg (26.0-34.0); MCHC 33.2 g/dL (31.0-37.0); MCV 90.7 fL (80.0-100.0); MEAN PLATELET VOLUME 9.9 fL (7.4-10.4); MONOCYTES 1.5 % (2-11); NEUTROPHILS 92.7 % (40-80); PLATELET COUNT 273 10x3/uL (130-400); RBC 4.82 10x6/uL (4.20-6.10); RDW 13.7 % (11.5-14.5); WBC 16.7 10x3/uL (4.8-10.8)
[2018-04-30 05:56] LABS: POTASSIUM - SERUM 4.8 mmol/L (3.5-5.1)
--- NOTE | 2018-04-30 08:47 | NUR ---
SITTING UP RIGHT IN BED, FAMILY PRESENT IN ROOM, ON ROOM AIR, IV TO RIGHT AC SALINE LOCKED, OCCASIONAL NON-PRODUCTIVE COUGH, AMBULATORY, DENIES ANY CURRENT NEEDS OR DISCOMFORTS, BED LOWERED AND LOCKED, CALL LIGHT WITHIN REACH. CPOC
[2018-04-30 10:02] VITALS: BP 133/73
[2018-04-30 13:10] VITALS: BP 145/67
--- NOTE | 2018-04-30 15:12 | NUR ---
I have reviewed this patient and I concur with the Shift Assessment completed by the Licensed Practical Nurse today this shift.
[2018-04-30 16:31] VITALS: BP 109/67
[2018-04-30 20:00] VITALS: BP 150/81
--- NOTE | 2018-04-30 21:45 | NUR ---
UP, WALKING IN ROOM, AT BEDSIDE. DENIES PAIN/COUGH. ALERT&ORIENTED X 4. STATES HE JUST TOOK HIS BLOOD PRESSURE PILL FROM HOME. BP 146/85. PT HAD QUESTION ABOUT MED CHANGES, INFORMED HIM OF SOLUMEDROL FREQUENCY CHANGE AND NEW ADDITIONS. DENIES FURTHER NEEDS.
[2018-05-01 04:00] VITALS: BP 146/77
--- NOTE | 2018-05-01 04:14 | NUR ---
I have reviewed this patient and I concur with the Shift Assessment completed by the Licensed Practical Nurse today this shift.
[2018-05-01 05:02] LABS: HEMATOCRIT 41.6 % (42.0-54.0); HEMOGLOBIN 13.9 g/dL (13.5-17.5); MCH 30.1 pg (26.0-34.0); MCHC 33.4 g/dL (31.0-37.0); PLATELET COUNT 293 10x3/uL (130-400); RBC 4.62 10x6/uL (4.20-6.10)
[2018-05-01 05:28] LABS: ANION GAP 15.4 mmol/L (8-16); CALCIUM 8.5 mg/dL (8.5-10.1); CREATININE - SERUM 1.4 mg/dL (0.6-1.3); POTASSIUM - SERUM 4.4 mmol/L (3.5-5.1)
[2018-05-01 06:33] LABS: LYMPHOCYTES 4 % (15-50); MONOCYTES 3 % (2-11); NEUTROPHILS 89 % (40-80); PLATELET ESTIMATE NORMAL
--- NOTE | 2018-05-01 07:45 | NUR ---
PT RESTING IN BED, WATCHING TV. NO C/O PAIN. NO S/S OF ACUTE DISTRESS NOTED. PT UP AD JUAN CARLOS. AT BEDSIDE. IV TO RIGHT AC, SL. SITE PATENT WITHOUT REDNESS OR SWELLING. PT ACHS. PT DENIES ANYTHING FURTHER AT THIS TIME. CALL LIGHT IN REACH. WILL CONTINUE TO MONITOR.
[2018-05-01 09:31] VITALS: BP 130/56
[2018-05-01 13:00] VITALS: BP 123/66
--- NOTE | 2018-05-01 18:30 | NUR ---
PT RESTING IN BED, EYES OPEN. AT BEDSIDE. NO C/O PAIN. NO S/S OF ACUTE DISTRESS NOTED. CALL LIGHT IN REACH. PT DENIES ANYTHING FURTHER AT THIS TIME. WILL CONTINUE TO MONITOR.
[2018-05-01 18:57] VITALS: BP 136/71
--- NOTE | 2018-05-01 19:11 | NUR ---
I have reviewed this patient and I concur with the Shift Assessment completed by the Licensed Practical Nurse today this shift.
[2018-05-01 20:00] VITALS: BP 157/79
[2018-05-02 04:00] VITALS: BP 139/67
[2018-05-02 04:32] LABS: BASOPHILS 0.1 % (0-2); EOSINOPHILS 0 % (0-7); HEMATOCRIT 41.4 % (42.0-54.0); IMMATURE GRANULOCYTES 0.6 % (0-5); LYMPHOCYTES 4.3 % (15-50); MCH 30.4 pg (26.0-34.0); MCHC 33.8 g/dL (31.0-37.0); MEAN PLATELET VOLUME 9.9 fL (7.4-10.4); MONOCYTES 2.7 % (2-11); NEUTROPHILS 92.3 % (40-80); PLATELET COUNT 296 10x3/uL (130-400); RDW 13.9 % (11.5-14.5); WBC 19.3 10x3/uL (4.8-10.8)
[2018-05-02 04:37] LABS: ANION GAP 14.8 mmol/L (8-16); CALCIUM 8.2 mg/dL (8.5-10.1); CARBON DIOXIDE 20.7 mmol/L (21.0-32.0); CREATININE - SERUM 1.5 mg/dL (0.6-1.3); POTASSIUM - SERUM 4.5 mmol/L (3.5-5.1)
--- NOTE | 2018-05-02 05:00 | NUR ---
I have reviewed this patient and I concur with the Shift Assessment completed by the Licensed Practical Nurse today this shift.
--- NOTE | 2018-05-02 07:45 | NUR ---
PT RESTING IN BED, EYES OPEN. AT BEDSIDE. NO C/O PAIN. NO S/S OF ACUTE DISTRESS NOTED. PT UP AD JUAN CARLOS. IV TO RIGHT AC, SL. SITE PATENT WITHOUT REDNESS OR SWELLING. PT ACHS. PT DENIES ANYTHING FURTHER AT THIS TIME. CALL LIGHT IN REACH. WILL CONTINUE TO MONITOR.
[2018-05-02 09:36] VITALS: BP 126/53
[2018-05-02 12:32] VITALS: Ht 182.9 cm; Wt 102.1 kg
[2018-05-02 14:16] VITALS: BP 133/61
--- NOTE | 2018-05-02 14:41 | MORECARE ---
CASE MANAGEMENT DISCHARGE SUMMARY PATIENT: SELENE MALAVE UNIT: [id number] ADM DATE: 04/29/18 AGE: 77 : 42 SEX: M ROOM/BED: D.2239 AUTHOR: JIM COLEMAN PHYSICIAN: REFERRING PHYSICIAN: NIHARIKA CRAIG MD DATE OF SERVICE: 05/02/18 Discharge Plan Patient Name: [facility]ELENE MALAVE [facility] [facility] 1940 Planned Disposition: Home Anticipated Discharge Date: Discharge Date: Expected LOS: Initial Reviewer: [email or web address] Initial Review Date: 05/02/2018 Generated: 05/02/18 3:40 pm Patient Name: SELENE MALAVE Page [phone] at 1441 All edits/amendments must be made on the electronic document DICTATION DATE: 05/02/18 1440 ELECTRIC MOTOR REPAIRMAN: SHARON 05/02/18 1440 RPT#: [id number] DC DATE: STATUS: ADM IN [facility] [address] [place] [address] END OF REPORT
--- NOTE | 2018-05-02 14:47 | MORECARE ---
CASE MANAGEMENT DISCHARGE SUMMARY PATIENT: SELENE MALAVE UNIT: [id number] ADM DATE: 04/29/18 AGE: 77 : 42 SEX: M ROOM/BED: D.2239 AUTHOR: JAREDDOC PHYSICIAN: REFERRING PHYSICIAN: NIHARIKA CRAIG MD DATE OF SERVICE: 05/02/18 Discharge Plan Patient Name: SELENE MALAVE Facility: [facility]:[place] : 1940 Planned Disposition: Home Anticipated Discharge Date: Discharge Date: Expected LOS: Initial Reviewer: [email or web address] Initial Review Date: 05/02/2018 Generated: 05/02/18 3:47 pm Comments DCP- Discharge Planning Updated by [email or web address]: Aubrie Metcalf on 05/02/18 1:[address] Patient Name: SELENE MALAVE Admission Status: ER Accout number: [id number] Admission Date: 04-29-2018 : 1940 Admission Diagnosis: Attending: NIHARIKA CRAIG Current LOS: 3 Anticipated DC Date: Planned Disposition: Home Primary Insurance: [employer] OUT OF STATE Discharge Planning Comments: CM met with patient to complete initial dc planning assessment, his is present in the room. CM educated patient on the CM role and verbal consent given by patient to complete assessment. Patient lives at home with his . States he lives in a home that has several 2 steps up and down (different levels) At discharge patient plans to return and feels this is a safe discharge. CM discussed availability of home health, rehab services, and medical equipment. Patient denied known discharge needs at this time. States he has a nebulizer, but is unsure which DME company he received it from and gets his nebulizer medicine from the pharmacy. No needs identified at this time. CM will continue to follow and will assist as needed with dc plans/needs. Aircraft Motor Mechanic: Aubrie Metcalf DCPIA - Discharge Planning Initial Assessment Updated by [email or web address]: Aubrie Metcalf on 05/02/18 2:42 pm * Is the patient Alert and Oriented? Yes * How many steps to enter\exit or inside your home? 0/few * PCP Dr. Durand * Pharmacy [facility] [address] * Preadmission Environment Home with Family * ADLs Independent * List name and contact numbers for known caregivers / representatives who currently or will assist patient after discharge: Kirstin sy - [phone] * Verbal permission to speak to the caregivers and representatives has been obtained from the patient. Yes * Community resources currently utilized None * Additional services required to return to the preadmission environment? No * Can the patient safely return to the preadmission environment? Yes * Has this patient been hospitalized within the prior 30 days at any hospital? No Last DP export: 05/02/18 1:40 p Patient Name: SELENE MALAVE Page [phone] at 1447 All edits/amendments must be made on the electronic document DICTATION DATE: 05/02/181446 FLIGHT RADIO OFFICER: SHARON 05/02/181446 RPT#: [id number] DC DATE: STATUS: ADM IN [facility] [address] [place] [address] END OF REPORT
--- NOTE | 2018-05-02 17:47 | NUR ---
I have reviewed this patient and I concur with the Shift Assessment completed by the Licensed Practical Nurse today this shift.
[2018-05-02 18:04] VITALS: BP 133/65
--- NOTE | 2018-05-02 18:46 | NUR ---
PT RESTING IN BED, EYES OPEN. AT BEDSIDE. NO C/O PAIN. NO S/S OF ACUTE DISTRESS NOTED. PT DENIES ANYTHING FURTHER AT THIS TIME. CALL LIGHT IN REACH. WILL CONTINUE TO MONITOR.
[2018-05-02 20:00] VITALS: BP 145/73
[2018-05-03] VITALS (7 sets, daily range): BP systolic 120–147; BP diastolic 59–76
[2018-05-03 04:59] LABS: BASOPHILS 0.1 % (0-2); EOSINOPHILS 0 % (0-7); HEMATOCRIT 43.4 % (42.0-54.0); HEMOGLOBIN 14.6 g/dL (13.5-17.5); LYMPHOCYTES 5.7 % (15-50); MCH 30.2 pg (26.0-34.0); MCHC 33.6 g/dL (31.0-37.0); MCV 89.7 fL (80.0-100.0); MEAN PLATELET VOLUME 9.6 fL (7.4-10.4); MONOCYTES 3.2 % (2-11); PLATELET COUNT 296 10x3/uL (130-400); RBC 4.84 10x6/uL (4.20-6.10); RDW 13.7 % (11.5-14.5); WBC 17.2 10x3/uL (4.8-10.8)
[2018-05-03 05:12] LABS: CALCIUM 8.3 mg/dL (8.5-10.1); CARBON DIOXIDE 22.7 mmol/L (21.0-32.0); CREATININE - SERUM 1.4 mg/dL (0.6-1.3); POTASSIUM - SERUM 4.7 mmol/L (3.5-5.1)
--- NOTE | 2018-05-03 07:14 | NUR ---
PT IS RESTING IN BED WITH EYES OPEN. RESPIRATIONS ARE EVEN AND UNLABORED. 2L O2 VIA NC. FAMILY IS AT BEDSIDE. PT WITH FREQUENT COUGHT. PT DENIES PRESENCE OF PAIN AND REQUESTS COUGH MEDICINE. WILL ADDRESS. SEE EMAR. PT DENIES FURTHER NEEDS. PT DENIES PRESENCE OF N/V. BED IS IN THE LOWEST POSITION. CALL LIGHT AND BEDSIDE TABLE ARE WITHIN REACH. WILL CONT TO MONITOR.
[2018-05-04 04:00] VITALS: BP 129/67
--- NOTE | 2018-05-04 04:46 | NUR ---
PT IN BED IN LOW FOWLERS POSITION. REPIRATIONS EVEN AND UNLABORED. VITAL SIGNS STABLE AND AFEBRILE. NO VISUAL CUES OF DISTRESS NOTED. DENIES ANY OTHER NEEDS AT THIS TIME. BED LOW, SIDE RAILS UP X2. CALL LIGHT IN REACH. WILL CONTINUE TO MONITOR.
[2018-05-04 05:00] LABS: BASOPHILS 0.1 % (0-2); EOSINOPHILS 0 % (0-7); HEMATOCRIT 42.9 % (42.0-54.0); HEMOGLOBIN 14.6 g/dL (13.5-17.5); IMMATURE GRANULOCYTES 1.3 % (0-5); LYMPHOCYTES 6.5 % (15-50); MCV 88.3 fL (80.0-100.0); MEAN PLATELET VOLUME 9.4 fL (7.4-10.4); MONOCYTES 4.8 % (2-11); NEUTROPHILS 87.3 % (40-80); PLATELET COUNT 281 10x3/uL (130-400); RBC 4.86 10x6/uL (4.20-6.10); RDW 13.6 % (11.5-14.5); WBC 16.8 10x3/uL (4.8-10.8)
[2018-05-04 05:12] LABS: ANION GAP 12.6 mmol/L (8-16); CREATININE - SERUM 1.5 mg/dL (0.6-1.3); POTASSIUM - SERUM 4.6 mmol/L (3.5-5.1)
--- NOTE | 2018-05-04 07:07 | NUR ---
PT IS RESTING IN BED WITH EYES OPEN. RESPIRATIONS ARE EVEN AND UNLABORED. O2 VIA NC @ 2L HUMIDIFIED. I.S. AT BED SIDE. FLUTTER VALVE AT BEDSIDE. PT DEMONSTRATES PROPER TECHNIQUE ON USE OF BOTH RESPIRATORY AIDES. FAMILY IS AT BEDSIDE. PT REPORTS A COUGH BUT DENIES NEED FOR COUGH SUPPRESANT AT THIS TIME. PT DENIES N/V AND PAIN AT THIS TIME. BED IS IN THE LOWEST POSITION. CALL LIGHT AND BEDSIDE TABLE ARE WITHIN REACH. WILL CONT TO MONITOR.
[2018-05-04 10:11] VITALS: BP 127/67
[2018-05-04 13:37] VITALS: BP 142/70
[2018-05-04 17:34] VITALS: BP 113/68
--- NOTE | 2018-05-04 19:33 | NUR ---
AWAKE AND ALERT IN BED DENIES NEEDS AT THIS TIME. SKIN WARM AND DRY ...POSS RUBS NOTED BUT MORE DEMINISHED IN LOWER BASES. O2 2L NC IN PLACE IV FLUIDS TO RT AC I PROVIDED MORE TAPE TO STABLIZE SITE...NO COUGH NOTED AT THIS TIME... BED IS LOW AND CALL LIGHT IS IN REACH
[2018-05-04 20:00] VITALS: BP 138/68
[2018-05-05] VITALS (7 sets, daily range): BP systolic 109–151; BP diastolic 52–74
--- NOTE | 2018-05-05 03:15 | NUR ---
I have reviewed this patient and I concur with the Shift Assessment completed by the Licensed Practical Nurse today this shift.
[2018-05-05 05:09] LABS: BASOPHILS 0.1 % (0-2); EOSINOPHILS 0 % (0-7); HEMATOCRIT 43.6 % (42.0-54.0); HEMOGLOBIN 14.8 g/dL (13.5-17.5); IMMATURE GRANULOCYTES 2.4 % (0-5); LYMPHOCYTES 5.9 % (15-50); MCH 29.9 pg (26.0-34.0); MCHC 33.9 g/dL (31.0-37.0); MCV 88.1 fL (80.0-100.0); MEAN PLATELET VOLUME 9.7 fL (7.4-10.4); MONOCYTES 3.7 % (2-11); NEUTROPHILS 87.9 % (40-80); PLATELET COUNT 289 10x3/uL (130-400); RBC 4.95 10x6/uL (4.20-6.10); RDW 13.9 % (11.5-14.5); WBC 16.2 10x3/uL (4.8-10.8)
[2018-05-05 05:31] LABS: ALBUMIN 2.7 g/dL (3.4-5.0); ANION GAP 16.4 mmol/L (8-16); BILIRUBIN - TOTAL 0.52 mg/dL (0.2-1.3); CALCIUM 7.8 mg/dL (8.5-10.1); CARBON DIOXIDE 20.3 mmol/L (21.0-32.0); CREATININE - SERUM 1.4 mg/dL (0.6-1.3); POTASSIUM - SERUM 4.7 mmol/L (3.5-5.1); PROTEIN - SERUM 5.8 g/dL (6.4-8.2)
--- NOTE | 2018-05-05 07:12 | NUR ---
SITTING UP RIGHT IN BED, ON 2LPM VIA NC, COUGH, PRODUCTIVE, PRESENT IN ROOM, DEMONSTRATED CORRECT USE OF ICENITIVE SPIROMETER, IV TO RIGHT AC NS AT 15ML/HR, PRESENT IN ROOM, DENIES ANY CURRENT NEEDS OR DISCOMFORTS, BED LOWERED AND LOCKED, CALL LIGHT WITHIN REACH. CPOC
--- NOTE | 2018-05-05 10:04 | NUR ---
REQUESTED TO BE WEANED OFF OF O2. TURNED LPM DOWN TO 1LPM FROM 2LPM, WILL MONITOR AND CONTINUE TO WEAN IF TOLERATED. DENIES ANY CURRENT NEEDS OR DISCOMFORTS, BED LOWERED AND LOCKED, CALL LIGHT WITHIN REACH. CPOC
--- NOTE | 2018-05-05 19:45 | NUR ---
BED LOW, CALL LIGHT IN REACH AND FAMILY PRESENT. LNGS ARE WET AND COURSE O2 IS AT 1L BUT PT REFUSES TO UP TO 2L SKIN WARM AND DRY DENIES OTHER NEEDS RESP NOTIFIED TO GIVE TREATMENT XANDER
[2018-05-06 04:00] VITALS: BP 133/70
[2018-05-06 06:28] LABS: ALBUMIN 2.7 g/dL (3.4-5.0); ANION GAP 16.5 mmol/L (8-16); BILIRUBIN - TOTAL 0.71 mg/dL (0.2-1.3); CALCIUM 7.6 mg/dL (8.5-10.1); CREATININE - SERUM 1.4 mg/dL (0.6-1.3); POTASSIUM - SERUM 4.5 mmol/L (3.5-5.1); PROTEIN - SERUM 5.4 g/dL (6.4-8.2)
[2018-05-06 06:33] LABS: BASOPHILS 0.1 % (0-2); EOSINOPHILS 0 % (0-7); HEMATOCRIT 43.7 % (42.0-54.0); HEMOGLOBIN 14.8 g/dL (13.5-17.5); LYMPHOCYTES 3.5 % (15-50); MCH 30.1 pg (26.0-34.0); MCHC 33.9 g/dL (31.0-37.0); MCV 88.8 fL (80.0-100.0); MEAN PLATELET VOLUME 9.9 fL (7.4-10.4); MONOCYTES 7.4 % (2-11); PLATELET COUNT 262 10x3/uL (130-400); RBC 4.92 10x6/uL (4.20-6.10); WBC 19.2 10x3/uL (4.8-10.8)
[2018-05-06 09:04] VITALS: BP 126/63
[2018-05-06 14:14] VITALS: BP 126/61
--- NOTE | 2018-05-06 16:29 | NUR ---
SPUTUM IS YELLOW/GREEN AND PINK TINGED. PT SHOWED SOME CONCERN. EXPLAINED TO HIM WITH HIS CONSTANT DEEP COUGHING HIS THROAT MAY BE A LITTLE IRRIATED BUT THAT I WOULD LIKE TO SEE ANY MORE SPUTUM THAT HE IS ABLE TO COUGH UP AND WE WILL MONITOR IT
[2018-05-06 17:53] VITALS: BP 144/72
[2018-05-06 20:00] VITALS: BP 151/72
[2018-05-06 22:06] LABS: IMMUNOGLOBULIN E 35 IU/mL (6-495)
[2018-05-07] VITALS: BP 114/62
[2018-05-07 04:00] VITALS: BP 137/71
[2018-05-07 05:31] LABS: BASOPHILS 0 % (0-2); EOSINOPHILS 0 % (0-7); HEMATOCRIT 41.3 % (42.0-54.0); HEMOGLOBIN 14.1 g/dL (13.5-17.5); LYMPHOCYTES 4.4 % (15-50); MCH 30.1 pg (26.0-34.0); MCHC 34.1 g/dL (31.0-37.0); MCV 88.1 fL (80.0-100.0); MEAN PLATELET VOLUME 9.6 fL (7.4-10.4); MONOCYTES 4.1 % (2-11); NEUTROPHILS 90.5 % (40-80); PLATELET COUNT 220 10x3/uL (130-400); RBC 4.69 10x6/uL (4.20-6.10); RDW 13.8 % (11.5-14.5)
[2018-05-07 06:12] LABS: ALBUMIN 2.3 g/dL (3.4-5.0); ANION GAP 10.8 mmol/L (8-16); BILIRUBIN - TOTAL 0.72 mg/dL (0.2-1.3); CALCIUM 7.7 mg/dL (8.5-10.1); CARBON DIOXIDE 24.2 mmol/L (21.0-32.0); CREATININE - SERUM 1.2 mg/dL (0.6-1.3); PROTEIN - SERUM 5.3 g/dL (6.4-8.2)
[2018-05-07 10:10] VITALS: BP 131/61
--- NOTE | 2018-05-07 10:39 | EC ---
PATIENT:SELENE MALAVE DATE OF SERVICE: 04/29/18 SEX: M MEDICAL RECORD: [id number] DATE OF : 44 LOCATION:[facility] AGE OF PATIENT: 77 ADMISSION DATE: 04/29/18 REFERRING PHYSICIAN: INTERPRETING PHYSICIAN: GLORIA HARTMANN MD ECHOCARDIOGRAM REPORT ECHO CHARGES 4 ECHO COMPLETE Date: 05/04/18 CLINICAL DIAGNOSIS: EDEMA ECHOCARDIOGRAPHIC MEASUREMENTS (adult normal given) AC root (d.<3.7cm) 3.5 cm LV Septum d (<1.2 cm> 1.4 cm Valve Excursion 2.0 cm LV Septum (systole) 1.9 cm Left Atria (s.<4.0cm> 4.5 cm LVPW d(<1.2cm) 1.3 cm RV (d.<2.3cm) 2.4 cm LVPW (sytole) 2.4 cm LV diastole(<5.6CM) 5.4 cm MV E-F(>70mm/sec) cm LV systole 2.9 cm LVOT Diameter 2.1 cm MV exc.(>10mm) cm Est.ejection fraction (50-75%) % DOPPLER: LVIT cm/sec A 91.0 cm/sec E 70.0 cm/sec LA cm/sec RVSP 39.0 mmHg LVOT 128 cm/sec AOP1/2T m/s Asc. Ao 150 cm/sec RVOT 122 cm/sec RA cm/sec PA 121 cm/sec AV Gradient Peak 9.0 mmHg AV Mean 4.2 mmHg AV Area 2.9 cm MV Gradient Peak 4.2 mmHg MV Mean 1.7 mmHg MV Area cm COMMENTS: Department Store Door Greeter: 1 RADHA SALINASOE Certified Medical Transcriptionist: 3 Dr. Douglass TAPE# PACS Pericardial Effusion N DATE OF SERVICE: Adequate 2-D, color-flow and spectral Doppler, and M-mode. Mild LVH. LV internal dimensions are normal. Wall motion is normal. EF is greater than or equal to 55%. Aortic valve is tricuspid. No evidence of stenosis by Doppler interrogation. Left atrium is dilated at 4.5 cm. Mitral valve shows no prolapse. Elie-ta-uimnirry MR. Right-sided chambers are grossly normal. Moderate TR. ECHOCARDIOGRAM REPORT [id number] SELENE MALAVE TRANSINT:[id number] Voice Confirmation ID: [id number] DOCUMENT ID: [id number] GLORIA HARTMANN MD at 1039 CC: [id number] DICTATION DATE: 05/04/18 145 BROADCAST CHECKER: 05/04/18 1924 ADM IN [facility] [address] [id number]
[2018-05-07] MEDS ORDERED: FEXOFENADINE HC60 MG PO (10:59)
[2018-05-07] MEDS ORDERED: LASIX40 MG PO (11:00)
[2018-05-07] MEDS ORDERED: BROVANA15 MCG/2 M INH (11:00)
[2018-05-07] MEDS ORDERED: SINGULAIR10 MG PO (11:01)
[2018-05-07] MEDS ORDERED: MUCINEX DM ER1 EAC1 PO (11:01)
[2018-05-07] MEDS ORDERED: FLUTICASONE PRO16 GM NASAL (11:01)
[2018-05-07] MEDS ORDERED: FLORAJEN3 CAPS460 MG PO (11:01)
[2018-05-07] MEDS ORDERED: COLACE100 MG PO (11:01)
[2018-05-07] MEDS ORDERED: PREDNISONE10 MG PO (11:02)
[2018-05-07] MEDS ORDERED: LEVOFLOXACIN500 MG PO (11:02)
[2018-05-07] MEDS ORDERED: Tessalon Perle PO (11:03)
[2018-05-07] MEDS ORDERED: AUGMENTIN 875-11 TAB PO (11:03)
[2018-05-07] MEDS ORDERED: Augmentin 500-125 TA PO (11:03)
--- NOTE | 2018-05-07 11:55 | NUR ---
SPOKE WITH PT AND REGARDING ANY NEEDS FOR CASE MANAGEMENT. HAD PREVIOUSLY SPOKEN WITH EDYTA WHITNEY RN, AND DENIED NEEDS. THEY REPORT NO NEEDS AT THIS TIME.
--- NOTE | 2018-05-07 12:16 | NUR ---
IV DISCONTINUED FROM RIGHT AC, CATHETER TIP INTACT, PLACED GAUZE OVER SITE WITH COBAN. DENIES ANY NEEDS, BED LOWERED AND LOCKED, CALL LIGHT WITHIN REACH. CPOC
[2018-05-07 13:46] VITALS: BP 122/59
--- NOTE | 2018-05-07 13:58 | NUR ---
DISCHARGE INSTRUCTIONS GIVEN. VERBALIZES UNDERSTANDING. TRANSPORTED OFF UNIT VIA WHEELCHAIR WITH FAMILY MEMBER. DENIED ANY CURRENT QUESTIONS OR CONCERNS.
--- NOTE | 2018-05-09 07:03 | MORECARE ---
CASE MANAGEMENT DISCHARGE SUMMARY PATIENT: SELENE MALAVE UNIT: [id number] ADM DATE: 04/29/18 AGE: 77 : 42 SEX: M ROOM/BED: D.2239 AUTHOR: JARED,DOC PHYSICIAN: REFERRING PHYSICIAN: NIHARIKA CRAIG MD DATE OF SERVICE: 05/09/18 Discharge Plan Patient Name: SELENE MALAVE Facility: [facility]:[place] : 1940 Planned Disposition: Home Anticipated Discharge Date: Discharge Date: 05/07/2018 Expected LOS: 0 Initial Reviewer: [email or web address] Initial Review Date: 05/02/2018 Generated: 05/09/18 8:03 am DCP- Discharge Planning Updated by [email or web address]: Aubrie Metcalf on 05/02/18 1:[address] Patient Name: SELENE MALAVE Admission Status: ER Accout number: [id number] Admission Date: 04-29-2018 : 1940 Admission Diagnosis: Attending: NIHARIKA CRAIG Current LOS: 3 Anticipated DC Date: Planned Disposition: Home Primary Insurance: [employer] OUT OF STATE Discharge Planning Comments: CM met with patient to complete initial dc planning assessment, his is present in the room. CM educated patient on the CM role and verbal consent given by patient to complete assessment. Patient lives at home with his . States he lives in a home that has several 2 steps up and down (different levels) At discharge patient plans to return and feels this is a safe discharge. CM discussed availability of home health, rehab services, and medical equipment. Patient denied known discharge needs at this time. States he has a nebulizer, but is unsure which DME company he received it from and gets his nebulizer medicine from the pharmacy. No needs identified at this time. CM will continue to follow and will assist as needed with dc plans/needs. Employment Training Specialist: Aubrie Metcalf DCPIA - Discharge Planning Initial Assessment Updated by [email or web address]: Aubrie Metcalf on 05/02/18 2:42 pm * Is the patient Alert and Oriented? Yes * How many steps to enter\exit or inside your home? 0/few * PCP Dr. Durand * Pharmacy [facility] on [address] * Preadmission Environment Home with Family * ADLs Independent * List name and contact numbers for known caregivers / representatives who currently or will assist patient after discharge: Kirstin sy - [phone] * Verbal permission to speak to the caregivers and representatives has been obtained from the patient. Yes * Community resources currently utilized None * Additional services required to return to the preadmission environment? No * Can the patient safely return to the preadmission environment? Yes * Has this patient been hospitalized within the prior 30 days at any hospital? No Last DP export: 05/02/18 1:47 p Patient Name: SELENE MALAVE Page [id number] at 0703 All edits/amendments must be made on the electronic document DICTATION DATE: 05/09/18702 NUCLEAR MEDICINE TECHNICIAN: SHARON 05/09/18702 RPT#: [id number] DC DATE:05/07/18 STATUS: DIS IN [facility] [address] [place] [address] END OF REPORT
== END 2018-05-07 13:59 | disposition home or self-care (01) | DRG 177 ==
LOC: D.ER 09:01 → D.MS 10:39
PROVIDERS: Emergency Medicine; Internal Medicine Pulmonary Disease; ADMIT Internal Medicine Nephrology; ATTEND Internal Medicine Nephrology
DX: J15.6 Pneumonia due to other Gram-negative bacteria (principal); J96.01 Acute respiratory failure with hypoxia; N17.9 Acute kidney failure, unspecified; J18.9 Pneumonia, unspecified organism; J40 Bronchitis, not specified as acute or chronic; N18.9 Chronic kidney disease, unspecified; G62.9 Polyneuropathy, unspecified; I10 Essential (primary) hypertension; I25.10 Atherosclerotic heart disease of native coronary artery without angina pectoris; J45.909 Unspecified asthma, uncomplicated

== ENCOUNTER → 2018-06-06 07:34 | Outpatient (CLI) | payer BC ==
[2018-05-02 12:32] VITALS: BMI 30.5
[~2018-06-06 07:34] MED LIST changes: +AUGMENTIN 875-11 TAB PO; +Augmentin 500-125 TA PO; +COLACE100 MG PO; +FEXOFENADINE HC60 MG PO; +FLORAJEN3 CAPS460 MG PO; +LEVOFLOXACIN500 MG PO; +MUCINEX DM ER1 EAC1 PO; +Tessalon Perle PO
== END | disposition home or self-care (01) ==
LOC: D.CT 06-01 08:00
PROVIDERS: ATTEND Internal Medicine Nephrology
DX: D35.00 Benign neoplasm of unspecified adrenal gland (principal); D29.1 Benign neoplasm of prostate

== ENCOUNTER → 2018-07-25 07:44 | Outpatient (CLI) | payer BC ==
[2018-05-02 12:32] VITALS: BMI 30.5
[2018-07-26 13:15] LABS: IMMUNOGLOBULIN A 101 mg/dL (61-437); IMMUNOGLOBULIN G 469 mg/dL (700-1600); IMMUNOGLOBULIN M 46 mg/dL (15-143)
[2018-07-30 15:08] LABS: IMMUNOGLOBULIN E 12 IU/mL (6-495)
== END | disposition home or self-care (01) ==
LOC: D.CT 07-24 10:30 → D.LAB 07-24 11:00
PROVIDERS: ATTEND Internal Medicine Pulmonary Disease
DX: J18.9 Pneumonia, unspecified organism (principal)

== ENCOUNTER → 2018-11-28 12:53 | Outpatient (CLI) | payer BC ==
[2018-05-02 12:32] VITALS: BMI 30.5
== END | disposition home or self-care (01) ==
LOC: D.CT 12:53
PROVIDERS: ATTEND Internal Medicine Pulmonary Disease
DX: R91.8 Other nonspecific abnormal finding of lung field (principal)

== ENCOUNTER → 2019-01-08 12:49 | Outpatient (CLI) | payer BC ==
[2018-05-02 12:32] VITALS: BMI 30.5
--- NOTE | 2019-01-10 11:17 | EC ---
PATIENT:SELENE MALAVE JR DATE OF SERVICE: 01/08/19 SEX: M MEDICAL RECORD: [id number] DATE OF : 44 LOCATION:[facility] AGE OF PATIENT: 78 ADMISSION DATE: 01/08/19 REFERRING PHYSICIAN: INTERPRETING PHYSICIAN: TONY ELLER MD ECHOCARDIOGRAM REPORT ECHO CHARGES 4 ECHO COMPLETE Date: 01/08/19 CLINICAL DIAGNOSIS: DYSPNEA ECHOCARDIOGRAPHIC MEASUREMENTS (adult normal given) AC root (d.<3.7cm) 3.4 cm LV Septum d (<1.2 cm> 1.3 cm Valve Excursion 2.0 cm LV Septum (systole) 1.7 cm Left Atria (s.<4.0cm> 4.7 cm LVPW d(<1.2cm) 1.4 cm RV (d.<2.3cm) 3.2 cm LVPW (sytole) 1.6 cm LV diastole(<5.6CM) 6.0 cm MV E-F(>70mm/sec) cm LV systole 4.1 cm LVOT Diameter 2.2 cm MV exc.(>10mm) 2.5 cm Est.ejection fraction (50-75%) % DOPPLER: LVIT cm/sec A 83.0 cm/sec E 67.0 cm/sec LA cm/sec RVSP 31 mmHg LVOT 108 cm/sec AOP1/2T m/s Asc. Ao 134 cm/sec RVOT 90 cm/sec RA cm/sec PA 124 cm/sec AV Gradient Peak 7.23 mmHg AV Mean 3.70 mmHg AV Area 2.6 cm MV Gradient Peak 3.11 mmHg MV Mean 1.40 mmHg MV Area cm COMMENTS: Glass Maker: Rober DENG Numberer And Wirer: 1 Dr. Eller TAPE# PACS Pericardial Effusion N DATE OF SERVICE: 01/08/2019 FINDINGS: 1. Left ventricular chamber size is within normal limits. Left ventricular systolic function is normal. Overall ejection fraction estimated at 55% to 60%. 2. Left atrium is enlarged at 4.7 cm. Right atrium and right ventricular chamber sizes are within normal limits. 3. Valvular structures have normal structure and motion. 4. Doppler interrogation reveals mild mitral regurgitation, mild tricuspid regurgitation, no other valvular insufficiency or stenosis. Pulmonary systolic ECHOCARDIOGRAM REPORT [id number] SELENE MALAVE JR pressure is estimated at 31 mmHg. 5. No evidence of pericardial effusion or left ventricular thrombus. TRANSINT:[id number] Voice Confirmation ID: [id number] DOCUMENT ID: [id number] TONY ELLER MD at 1117 CC: [id number] DICTATION DATE: 01/09/19 1548 SORT LINE WORKER: 01/09/19 1848 DEP CLI 01/08/19 [address] [id number] [place] [id number]
== END | disposition home or self-care (01) ==
LOC: D.ECHO 10:05
PROVIDERS: ATTEND Thoracic Surgery (Cardiothoracic Vascular Surgery)
DX: R06.02 Shortness of breath (principal)

== ENCOUNTER → 2020-04-25 11:02 | Outpatient (CLI) | payer MEDICARE, OTHER ==
[2018-05-02 12:32] VITALS: BMI 30.5
== END | disposition home or self-care (01) ==
LOC: D.LAB 11:02
PROVIDERS: ATTEND Internal Medicine Pulmonary Disease
DX: Z11.52 Encounter for screening for COVID-19 (principal)

== ENCOUNTER → 2020-04-30 07:52 | Outpatient (CLI) | payer MEDICARE, OTHER ==
[2018-05-02 12:32] VITALS: BMI 30.5
== END | disposition home or self-care (01) ==
LOC: D.CT 07:52 → D.RT 10:00
PROVIDERS: ATTEND Internal Medicine Pulmonary Disease
DX: R59.9 Enlarged lymph nodes, unspecified (principal); I71.4 Abdominal aortic aneurysm, without rupture; Z11.52 Encounter for screening for COVID-19; J45.909 Unspecified asthma, uncomplicated

== ENCOUNTER 2020-06-04 08:17 | Day surgery (SDC) | payer MEDICARE, OTHER ==
[~2020-06-04] VITALS: Ht 182.9 cm; Wt 98.0 kg
[2020-06-04 08:32] LABS: BASOPHILS 0.3 % (0-2); EOSINOPHILS 3.4 % (0-7); HEMOGLOBIN 14.8 g/dL (13.5-17.5); IMMATURE GRANULOCYTES 0.1 % (0-5); LYMPHOCYTE ABS# 2.07 10x3/uL (1.32-3.57); LYMPHOCYTES 28.2 % (15-50); MCH 31.1 pg (26.0-34.0); MCHC 33.6 g/dL (31.0-37.0); MCV 92.4 fL (80.0-100.0); MEAN PLATELET VOLUME 9.6 fL (7.4-10.4); MONOCYTES 7.9 % (2-11); NEUTROPHILS 60.1 % (40-80); RBC 4.76 10x6/uL (4.20-6.10); WBC 7.3 10x3/uL (4.8-10.8)
[2020-06-04 08:33] LABS: PLATELET COUNT 274 10x3/uL (130-400)
[2020-06-04 08:40] LABS: APTT 32.8 SECONDS (22.8-39.4); INR 1.05 (0.85-1.17); PROTIME 12.7 SECONDS (11.6-15.0)
[2020-06-04] MEDS ORDERED: TARKA 4-240 MG1 EACH (09:19)
[2020-06-04] MEDS ORDERED: CO Q1060 MG (09:20)
[2020-06-04 09:24] VITALS: BP 137/74; Ht 182.9 cm; Wt 98.0 kg
[2020-06-04 11:27] LABS: ANION GAP 10.6 mmol/L (8-16); CALCIUM 8.8 mg/dL (8.5-10.1); CARBON DIOXIDE 27.3 mmol/L (21.0-32.0); CREATININE - SERUM 1.2 mg/dL (0.6-1.3); POTASSIUM - SERUM 3.9 mmol/L (3.5-5.1)
--- NOTE | 2020-06-04 15:27 | NUR ---
1500 DR CHANG CALLED FOR DISCHARGE ORDERS AND STATED PT CAN GO HOME. PT NOT SPITTING UP ANY BLOOD. MILD COUGH
[2020-06-05] MEDS ORDERED: PULMICORT0.5 MG/21 INH (09:39)
[2020-06-05] MEDS ORDERED: STERAPRED DS 1210 MG PO (09:39)
[2020-06-05] MEDS ORDERED: IPRAT-ALBUT 0.5-3 ML UPD (09:39)
[2020-06-05] MEDS ORDERED: ZPAK PO (09:40)
[2020-06-05 17:08] LABS: ACID FAST SMEAR Negative (()); AFB SPECIMEN PROCESSING Concentration (())
[2020-06-06 11:11] LABS: FUNGUS STAIN Final report (())
== END 2020-06-04 15:15 | disposition home or self-care (01) ==
LOC: D.OPS 08:17
PROVIDERS: ATTEND Internal Medicine Pulmonary Disease
DX: R91.8 Other nonspecific abnormal finding of lung field (principal); J45.909 Unspecified asthma, uncomplicated; R93.89 Abnormal findings on diagnostic imaging of other specified body structures; Z87.01 Personal history of pneumonia (recurrent); G47.33 Obstructive sleep apnea (adult) (pediatric); J18.9 Pneumonia, unspecified organism; I27.21 Secondary pulmonary arterial hypertension; D80.3 Selective deficiency of immunoglobulin G [IgG] subclasses

== ENCOUNTER 2020-06-05 08:22 | Emergency (ER) | payer MEDICARE, OTHER ==
[~2020-06-05] VITALS: Ht 182.9 cm; Wt 98.2 kg
[~2020-06-05 08:22] MED LIST changes: +CO Q1060 MG; +TARKA 4-240 MG1 EACH
[2020-06-05 08:28] VITALS: BP 152/65; Ht 182.9 cm; Wt 98.2 kg
[2020-06-05 08:58] LABS: BASOPHILS 0.1 % (0-2); EOSINOPHILS 0.1 % (0-7); HEMATOCRIT 43.2 % (42.0-54.0); HEMOGLOBIN 14.6 g/dL (13.5-17.5); IMMATURE GRANULOCYTES 0.2 % (0-5); LYMPHOCYTE ABS# 1.22 10x3/uL (1.32-3.57); LYMPHOCYTES 7.4 % (15-50); MCH 30.9 pg (26.0-34.0); MCHC 33.8 g/dL (31.0-37.0); MCV 91.3 fL (80.0-100.0); MONOCYTES 6.2 % (2-11); NEUTROPHIL ABS# 14.13 10x3/uL (1.78-5.38); PLATELET COUNT 312 10x3/uL (130-400); RBC 4.73 10x6/uL (4.20-6.10); RDW 12.9 % (11.5-14.5)
[2020-06-05 09:01] LABS: ANION GAP 18.8 mmol/L (8-16); CALCIUM 8.8 mg/dL (8.5-10.1); CREATININE - SERUM 1.2 mg/dL (0.6-1.3); POTASSIUM - SERUM 3.9 mmol/L (3.5-5.1)
[2020-06-05 09:02] LABS: CARBON DIOXIDE 19.1 mmol/L (21.0-32.0)
[2020-06-05 09:07] LABS: ALBUMIN 3.6 g/dL (3.4-5.0); BILIRUBIN - TOTAL 0.71 mg/dL (0.2-1.3); PROTEIN - SERUM 6.5 g/dL (6.4-8.2)
[2020-06-05 09:17] LABS: WBC 16.4 10x3/uL (4.8-10.8)
[2020-06-05] MEDS ORDERED: STERAPRED DS 1210 MG PO (09:39)
[2020-06-05] MEDS ORDERED: IPRAT-ALBUT 0.5-3 ML UPD (09:39)
[2020-06-05] MEDS ORDERED: PULMICORT0.5 MG/21 INH (09:39)
[2020-06-05] MEDS ORDERED: ZPAK PO (09:40)
== END 2020-06-05 10:42 | disposition home or self-care (01) ==
LOC: D.ER 08:22
PROVIDERS: Emergency Medicine
DX: R05 Cough (principal); J18.9 Pneumonia, unspecified organism; I10 Essential (primary) hypertension; G62.9 Polyneuropathy, unspecified; N40.0 Benign prostatic hyperplasia without lower urinary tract symptoms